=== PATIENT | male | born 1960 | race African-American/Black ===

== ENCOUNTER 2018-10-06 14:20 | Inpatient (IN) | payer MEDICAID ==
[~2018-10-06] VITALS: Ht 170.2 cm; Wt 78.9 kg
[~2018-10-06 14:20] MED LIST: ASPI-605 PO; CARV3.122 PO; FURO-151 PO; LOSA25TA27 PO; METO-356 PO; potassium chloride PO
--- NOTE | 2018-10-06 15:10 | NUR ---
RECECIVED A 58 Y/O MALE PT A CASE OF ABD PAIN, PT CONNECTED TO ECG MONITOR V/S TAKEN BP ON THE LOW SIDE , INFORMED , AWAITING TO BE SEE BY
--- NOTE | 2018-10-06 15:40 | NUR ---
SEEN BY EMBER BUNDY G20 INSRETED ON LT WRIST. ALL LAB SAMPLES TAKEN, ECG AND CXRAY DONE. AWAITING RESULTS.
[2018-10-06 15:46] LABS: BASOPHILS # (AUTO) 0.1 K/uL (0.0-8.0); BASOPHILS % (AUTO) 0.8 % (0.0-2.0); EOSINOPHILS # (AUTO) 0.2 K/uL (0.0-0.7); EOSINOPHILS % (AUTO) 2.6 % (0.0-7.0); HEMATOCRIT 48.9 % (36.7-47.1); HEMOGLOBIN 16.5 g/dL (12.5-16.3); LYMPHOCYTES # (AUTO) 1.5 K/uL (20.0-40.0); LYMPHOCYTES % (AUTO) 16.9 % (20.5-51.5); MEAN CORPUSCULAR HEMOGLOBIN 36.2 uug (23.8-33.4); MEAN CORPUSCULAR HGB CONC 34 g/dL (32.5-36.3); MEAN CORPUSCULAR VOLUME 107.3 fL (73.0-96.2); MONOCYTES # (AUTO) 0.7 K/uL (2.0-10.0); MONOCYTES % (AUTO) 7.3 % (0.0-11.0); NEUTROPHILS # (AUTO) 6.5 K/uL (1.8-8.9); NEUTROPHILS % (AUTO) 72.4 % (38.5-71.5); PLATELET COUNT (AUTO) 210 K/uL (152-348); RED BLOOD CELL COUNT(AUTO) 4.55 MIL/uL (4.06-5.63)
[2018-10-06 15:54] LABS: CREATININE 1.3 mg/dL (0.6-1.3); POTASSIUM 5.1 mmol/L (3.5-5.1)
[2018-10-06 16:07] LABS: BILIRUBIN,DIRECT 0.3 mg/dL (0.0-0.2); BILIRUBIN,TOTAL 1.5 mg/dL (0.2-1.0); TOTAL PROTEIN, SERUM 7.2 g/dL (6.4-8.2)
--- NOTE | 2018-10-06 17:00 | NUR ---
PATIENT TO BE ADMITTED TO TELE UNIT, [facility] PAGED, PHONE CALL RECEIVED FROM SHIRLEY WEINBERG.
--- NOTE | 2018-10-06 17:28 | NUR ---
FULL REPORT GIVEN TO CONCEPCION DE LA CRUZ.
[2018-10-06 17:53] VITALS: BP 101/78
--- NOTE | 2018-10-06 18:00 | NUR ---
RECEIVED PATIENT FROM ER. OBTAINED URINE SAMPLE AND TOOK VITALS. FULL ADMISSION BEING COMPLETED. PATIENT AMBULATING STEADILY TO RESTROOM. PATIENT REPORTING PAIN WITH INSPIRATION. INFORMED PATIENT THAT PHYSICIAN WILL BE IN TO ASSESS AND PLACE ORDERS.
[2018-10-06 19:13] LABS: *AMPHETAMINE, URINE NEGATIVE (NEGATIVE); *BARBITURATE, URINE NEGATIVE (NEGATIVE); *CANNABINOID, URINE NEGATIVE (NEGATIVE); *COCCAINE, URINE NEGATIVE (NEGATIVE); *OPIATE, URINE NEGATIVE (NEGATIVE); *PHENCYCLIDINE SCREEN,URINE NEGATIVE (NEGATIVE)
--- NOTE | 2018-10-06 19:40 | NUR ---
Received pt resting comfortably in bed. Alert and awake x4. Tele noted to be SR with HR of 90. Discussed and reviewed plan of care, pt cooperative with care. Pt IV pulled out. Pt states he took it out because he does not like the placement of the IV. No bleeding noted. Pt has no complaint of pain, SOB or dizziness at this time. Safety precautions and comfort measures in place. Bed on low locked position, call light within reach. Will continue to monitor closely.
[2018-10-06 20:00] VITALS: BP 103/77
--- NOTE | 2018-10-06 20:00 | NUR ---
IV insertion on right FA 20 g, intact and patent with no s/s of redness or swelling.
--- NOTE | 2018-10-06 20:40 | NUR ---
Pt seen by SHIRLEY DELEON. Maintain fluid restriction of 1L/day. Reviewed plan of care with pt, pt verbalizes understanding of treatment plan. Will continue to monitor.
[2018-10-06] MEDS ORDERED: Z GUARD REMEDY PASTE 57 GM TUBE TOP PRN (21:00)
[2018-10-06] MEDS ORDERED: ONDANSETRON 4 MG/2 ML VIAL IV PRN (21:00)
[2018-10-06] MEDS ORDERED: HYDROCODONE/APAP 5-325MG TABLET PO PRN (21:00)
[2018-10-06] MEDS ORDERED: MAGNESIUM HYDROXIDE 30 ML LIQUID UDC PO PRN (21:00)
[2018-10-06] MEDS ORDERED: ACETAMINOPHEN 325 MG TABLET PO PRN (21:00)
[2018-10-06] MEDS: FUROSEMIDE 40 MG/4 ML VIAL IV SCH (21:21)
[2018-10-07 01:07] VITALS: BP 94/65
[2018-10-07 05:18] VITALS: BP 98/74
[2018-10-07 06:10] LABS: BASOPHILS % (AUTO) 0.5 % (0.0-2.0); EOSINOPHILS # (AUTO) 0.2 K/uL (0.0-0.7); EOSINOPHILS % (AUTO) 2.7 % (0.0-7.0); HEMATOCRIT 43.1 % (36.7-47.1); HEMOGLOBIN 15.1 g/dL (12.5-16.3); LYMPHOCYTES # (AUTO) 2.2 K/uL (20.0-40.0); LYMPHOCYTES % (AUTO) 25.3 % (20.5-51.5); MEAN CORPUSCULAR HEMOGLOBIN 36.7 uug (23.8-33.4); MEAN CORPUSCULAR HGB CONC 35 g/dL (32.5-36.3); MEAN CORPUSCULAR VOLUME 104.8 fL (73.0-96.2); MONOCYTES # (AUTO) 0.6 K/uL (2.0-10.0); NEUTROPHILS # (AUTO) 5.7 K/uL (1.8-8.9); NEUTROPHILS % (AUTO) 64.5 % (38.5-71.5); PLATELET COUNT (AUTO) 210 K/uL (152-348); RED BLOOD CELL COUNT(AUTO) 4.11 MIL/uL (4.06-5.63); WHITE BLOOD COUNT (AUTO) 8.8 K/uL (3.6-10.2)
[2018-10-07 06:23] LABS: CREATININE 1.2 mg/dL (0.6-1.3); MAGNESIUM 2.1 mg/dL (1.8-2.4); PHOSPHOROUS 4.1 mg/dL (2.5-4.9); POTASSIUM 3.7 mmol/L (3.5-5.1)
--- NOTE | 2018-10-07 06:53 | NUR ---
Pt slept well, easily arousable during initial rounds. BP controlled t/o shift. Tele noted Pt has no complaints of pain, SOB or dizziness at this time. Comfort measures maintained. Call light within reach. Will endorse plan of care to day shift nurse.
[2018-10-07] MEDS ORDERED: METOPROLOL SUCCINATE XL 25 MG TAB.SR.24H PO SCH (09:00)
[2018-10-07] MEDS ORDERED: ASPIRIN EC 81 MG TABLET.DR PO SCH (09:00)
[2018-10-07] MEDS ORDERED: LOSARTAN POTASSIUM 25 MG TABLET PO SCH (09:00)
[2018-10-07] MEDS: FUROSEMIDE 40 MG/4 ML VIAL IV SCH (10:42)
[2018-10-07 11:13] VITALS: BP 91/60
[2018-10-07] MEDS ORDERED: FURO-151 PO (14:50)
--- NOTE | 2018-10-07 15:00 | NUR ---
REPORT RECEIVED FROM OUTGOING RN. PATIENT PLAN FOR DISCHARGE
[2018-10-07 15:10] VITALS: BP 84/58
--- NOTE | 2018-10-07 15:44 | NUR ---
discharge paper signed and medication and follow-up instruction given
--- NOTE | 2018-10-07 16:30 | NUR ---
DCD HOME WITH MEDICATION AND FOLLOW-UP INSTRUCTION WITH PCP
== END 2018-10-07 16:45 | disposition home or self-care (01) | DRG 194 ==
LOC: ER 14:20 → TELE 17:30 → MED 10-07 11:19
PROVIDERS: ADMIT Nurse Practitioner Acute Care; ATTEND Nurse Practitioner Acute Care
DX: I11.0 Hypertensive heart disease with heart failure (principal); F15.11 Other stimulant abuse, in remission; I50.23 Acute on chronic systolic (congestive) heart failure; R79.89 Other specified abnormal findings of blood chemistry; Z91.14 Patient's other noncompliance with medication regimen; Z79.899 Other long term (current) drug therapy; Z88.2 Allergy status to sulfonamides
CPT/HCPCS: 36415; 70030-TC; 71045; 80307; 83605; 83735; 84100; 85025; 85730; 87040; 93005; A4663; G0378; J1940